=== PATIENT | male | born 1995 | race Caucasian/White ===

== ENCOUNTER 2019-01-16 16:21 | Emergency (ER) | payer SELFPAY ==
[~2019-01-16] VITALS: Ht 172.7 cm; Wt 91.8 kg
[~2019-01-16 16:21] MED LIST: BACI30OI10 TP; OXYC-38 PO
[2019-01-16 18:15] LABS: APPEARANCE,URINE CLEAR (CLEAR); BILIRUBIN,URINE NEGATIVE (NEGATIVE); GLUCOSE, URINE (UA) NEGATIVE (NEGATIVE); KETONES,URINE 40 mg/dL (NEGATIVE); LEUKOCYTE ESTERASE ,URINE NEGATIVE (NEGATIVE); NITRATE,URINE NEGATIVE (NEGATIVE); OCCULT BLOOD,URINE NEGATIVE (NEGATIVE); PROTEIN,URINE NEGATIVE (NEGATIVE); UROBILINOGEN,URINE 0.2 mg/dL (<=1.0)
[2019-01-16 20:39] VITALS: BP 145/74
== END 2019-01-16 21:15 | disposition home or self-care (01) ==
LOC: EMS 16:22
DX: N43.3 Hydrocele, unspecified (principal); I86.1 Scrotal varices; F17.210 Nicotine dependence, cigarettes, uncomplicated; F12.90 Cannabis use, unspecified, uncomplicated
CPT/HCPCS: 76870; 99406